=== PATIENT | female | born 1980 | race African-American/Black ===

== ENCOUNTER 2016-12-14 21:25 | Emergency (ER) | payer MEDICAID ==
[2016-12-14] MEDS ORDERED: Lidocaine 1% 20 ML MDV INJECT ONE (21:35)
--- NOTE | 2016-12-14 21:39 | EDM.PDOC ---
ED HPI GENERAL MEDICAL PROBLEM - General Stated Complaint: BOIL ON BUTT Time Seen by Provider: 12/14/16 21:33 Source of Information: Reports: Patient History Limitations: Reports: No Limitations - History of Present Illness INITIAL COMMENTS - FREE TEXT/NARRATIVE: HISTORY AND PHYSICAL: []36-year-old black female presenting with a boil on her "butt" History of Present Illness: []Patient had pain in this area for 3 days. Niacin any other complaints Review of Systems: As per history of present illness and below otherwise all systems reviewed and negative. Past medical history: As per history of present illness and as reviewed below otherwise noncontributory. Surgical history: As per history of present illness and as reviewed below otherwise noncontributory. Social history: No reported history of drug or alcohol abuse. Family history: As per history of present illness and as reviewed below otherwise noncontributory. Physical exam: Alert female answering questions appropriately HEENT: Atraumatic, normocehpalic, pupils reactive, negative for conjunctival pallor or scleral icterus, mucous membranes moist, throat clear, neck supple, nontender, trachea midline. Lungs: Clear to auscultation, breath sounds equal bilaterally, chest non tender. Heart: S1S2, regular, negative for clicks, rubs, or JVD. Abdomen: Soft, nondistended, nontender. Negative for masses or hepatossplenmegaly. Negative for costovertebral tenderness. Pelvis: Stable nontender. Genitourinary: Deferred. Rectal: Mid buttocks area of firmness mild erythema rectal area not involved. No fluctuation. Extremities: Atraumatic, negative for cords or calf pain. Neurovascular unremarkable. Neuro: Awake, alert, oriented. Cranial nerves II through XII unremarkable. Cerebellum unremarkable. Motor and sensory unremarkable throughout. Exam nonfocal. Diagnostics: [] Therapeutics: [] Impression: [A cellulitis versus early abscess] Plan: []Antibiotic therapy of cephalexin 500 mg 3 times a day Sitz baths or hot compresses to help define this area dry out the infection Ibuprofen for discomfort Definitive disposition and diagnosis as appropriate pending reevaluation and review of above. Onset: Sudden Duration: Day(s): (3) Location: Reports: Other (butocks) Quality: Reports: Stabbing, Throbbing Severity: Moderate - Related Data Allergies Allergy/AdvReac Type Severity Reaction Status Date / Time No Known Allergies Allergy Verified 12/14/16 21:38 Home Meds: Home Meds . [No Known Home Meds] 02/17/15 [History] Past Medical History - Past Health History Medical/Surgical History: Denies Medical/Surgical History Social & Family History - Tobacco Use Smoking Status *Q: Current Every Day Smoker Years of Tobacco use: 8 Packs/Tins Daily: 0.3 Second Hand Smoke Exposure: No - Recreational Drug Use Recreational Drug Use: No ED ROS GENERAL - Review of Systems Review Of Systems: ROS reveals no pertinent complaints other than HPI. ED EXAM, SKIN/RASH Exam: See Below (See dictation) Departure - Departure Time of Disposition: 21:42 Disposition: Home, Self-Care 01 Condition: Good Clinical Impression: Abscess - Discharge Information Additional Instructions: The following information is given to patients seen in the emergency department who are being discharged to home. This information is to outline your options for follow-up care. We provide all patients seen in our emergency department with a follow-up referral. The need for follow-up, as well as the timing and circumstances, are variable depending upon the specifics of your emergency department visit. If you don't have a primary care physician on staff, we will provide you with a referral. We always advise you to contact your personal physician following an emergency department visit to inform them of the circumstance of the visit and for follow-up with them and/or the need for any referrals to a consulting specialist. The emergency department will also refer you to a specialist when appropriate. This referral assures that you have the opportunity for followup care with a specialist. All of these measure are taken in an effort to provide you with optimal care, which includes your followup. Under all circumstances we always encourage you to contact your private physician who remains a resource for coordinating your care. When calling for followup care, please make the office aware that this follow-up is from your recent emergency room visit. If for any reason you are refused follow-up, please contact the [facility] emergency department at and asked to speak to the emergency department charge nurse. Prescription has been sent to [facility] Cephalexin 500mg 1 capsule tid for 10 days Follow-up in one week with your PCP
[2016-12-14 21:43] VITALS: BP 116/57
== END 2016-12-14 21:45 | disposition home or self-care (01) ==
LOC: MW.ED 21:25
DX: L02.31 Cutaneous abscess of buttock (principal); F17.210 Nicotine dependence, cigarettes, uncomplicated
CPT/HCPCS: 99282

== ENCOUNTER 2019-10-11 08:25 | Emergency (ER) | payer MEDICAID ==
--- NOTE | 2019-10-11 08:58 | EDM.PDOC ---
ED HPI GENERAL MEDICAL PROBLEM - General Chief Complaint: General Stated Complaint: KNOT GROWNING Time Seen by Provider: 10/11/19 08:39 Source of Information: Reports: Patient History Limitations: Reports: No Limitations - History of Present Illness INITIAL COMMENTS - FREE TEXT/NARRATIVE: This patient is a 39-year-old female with a remote history of treated syphilis and Chlamydia presenting with painful bumps to her right inguinal region and the perianal region. Patient states that both of these lesions appeared approximately 3 days ago, together. She is concerned that she may have abscesses. She denies any dysuria, urinary frequency, genital ulcers or lesions , or vaginal discharge. She states that she has been in a monogamous relationship with one partner for quite a long time and has no concerns about STI exposure. Denies fever, chills, nausea, vomiting, new lesions on the palms or soles. Right Groin Pain Score (Numeric/FACES): 8 - Related Data Allergies Allergy/AdvReac Type Severity Reaction Status Date / Time No Known Allergies Allergy Verified 10/11/19 08:32 Home Meds: Home Meds Doxycycline Hyclate 100 mg PO BID 10 Days #20 tablet. 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 Musculoskeletal History: Reports: None Neurological History: Reports: None Psychiatric History: Reports: None Endocrine/Metabolic History: Reports: None Hematologic History: Reports: None Immunologic History: Reports: None Oncologic (Cancer) History: Reports: None Dermatologic History: Reports: None - Infectious Disease History Infectious Disease History: Reports: None - Past Surgical History Head Surgeries/Procedures: Reports: None HEENT Surgical History: Reports: Tonsillectomy Social & Family History - Family History Family Medical History: Noncontributory - Tobacco Use Smoking Status *Q: Former Smoker Years of Tobacco use: 20 Packs/Tins Daily: 0.5 Used Tobacco, but Quit: Yes Month/Year Tobacco Last Used: 3\3030 Second Hand Smoke Exposure: Yes - Caffeine Use Caffeine Use: Reports: Coffee, Soda - Recreational Drug Use Recreational Drug Use: No ED ROS GENERAL - Review of Systems Review Of Systems: See Below Constitutional: Denies: Fever, Chills HEENT: Denies: Throat Pain Respiratory: Denies: Shortness of Breath Cardiovascular: Denies: Chest Pain GI/Abdominal: Denies: Abdominal Pain, Nausea, Vomiting : Reports: Other (Denies vaginal bleeding, vaginal discharge). Denies: Discharge, Dysuria, Flank Pain, Frequency, Urgency, Urinary Retention Musculoskeletal: Denies: Back Pain Skin: Reports: Lesions. Denies: Rash Neurological: Reports: No Symptoms Psychiatric: Reports: No Symptoms Hematologic/Lymphatic: Reports: No Symptoms Immunologic: Reports: No Symptoms ED EXAM, GENERAL - Physical Exam Exam: See Below Free Text/Narrative:: Vital signs reviewed. Nursing notes reviewed. Constitutional: Awake, alert, non-distressed. Head: Normocephalic, atraumatic. Eyes: EOMI, conjunctiva normal, no discharge, no scleral icterus. Ears, Nose, Throat: External ears and nose normal, moist oral mucosa. Oropharynx normal. Cardiovascular: 2+ radial pulse, capillary refill less than 2 seconds. Pulmonary: normal work of breathing, no accessory muscle use. Abdomen/GI: Soft, nontender, nondistended, no guarding or rigidity, no masses. : Painful right inguinal lymph node without associated erythema or drainable head or fluctuance. No evidence of genital lesions. In the right gluteal area , there is an area of erythema, tenderness, and fluctuance concerning for perianal abscess. Lone external hemorrhoid noted. Musculoskeletal: No deformities. Integumentary: Appropriate color for ethnicity, warm, dry, no pallor or jaundice , no rash. Neurologic: Alert, answering questions appropriately, normal speech, no facial droop, moving all extremities well. Psychiatric: Appropriate mood and affect, normal thought process. ED I&D PROCEDURES - I&D Site: Right gluteal cleft Skin prep: Isopropyl Alcohol (Alcohol) Local anesthesia - Lidocaine (Xylocaine): 0.5% Plain Local Anesthetic Volume: 4cc Area Incised With: 11 Blade Drainage: Purulent Probed to Break Up Loculations: Yes Packed With: 1/4 in. Iodoform Sterile Dressing: None (ABD) Complications: No Progress/Comments: Would culture sent ED ULTRASOUND - Evaluation of Abscess Location: Right gluteal cleft Abscess Identified: Yes Size of Abscess: 1x2 cm Loculations noted: No US Evaluation of Abscess Text: Complex fluid collection consistent with abscess , no evidence of cellulitis Course - Vital Signs Text/Narrative:: 39-year-old female presenting with a painful swollen groin lesion and a painful perianal lesion. Patient [hemodynamically stable, afebrile], well-appearing, looks nontoxic. Differential diagnosis includes but is not limited to: Syphilis, chlamydia, gonorrhea, inguinal abscess, lymphogranuloma venereum, abscess, perianal abscess , granuloma inguinale, and many others No painful ulceration to suggest chancroid or granuloma inguinale. No ulcers or blisters to suggest HSV. There is some concern for lymphogranuloma venereum/ syphilis given a unilateral isolated painful inguinal lymph node. Gonorrhea and chlamydia swabs were sent. Genital swabs are positive for Gardnerella the patient does not complain of any vaginal discharge or foul odor so clinical suspicion for BV is low. Rapid HIV testing is negative. Underwent bedside incision and drainage of the abscess as detailed in the procedure note. Packing was left in place, instructed patient to remove in 48 hours. Short course of doxycycline prescribed. Recommended [id number] acetaminophen and ibuprofen for pain. Wound culture sent. Plan: Patient is stable to discharge home with outpatient primary care follow- up. Strict emergency department return precautions were provided, patient indicated understanding. All questions were answered prior to departure. Discharged in good condition. Last Recorded V/S: Last Vital Signs Temp 35.8 C L 10/11/19 08:33 Pulse 72 10/11/19 10:29 Resp 16 10/11/19 10:29 BP 116/62 10/11/19 10:29 Pulse Ox 98 10/11/19 10:29 - Orders/Labs/Meds Orders: Active Orders 24 hr Category Date Time Status Communication Order [RC] STAT Care 10/11/19 09:35 Active Pelvic Exam, Set Up [RC] ASDIRECTED Care 10/11/19 09:06 Active CHLAMYDIA AND GONORRHEA BY TMA Stat Lab 10/11/19 09:20 Received CULTURE WOUND [RM] Stat Lab 10/11/19 10:20 Received RPR (SYPHILIS SERO) W/ RFLX [REF] Stat Lab 10/11/19 09:16 Received Labs: Laboratory Tests 10/11/19 10/11/19 Range/Units 08:42 09:16 Doretha species DNA NEGATIVE (NEGATIVE) Gardnerella DNA Probe POSITIVE H (NEGATIVE) HIV 1&2 Ag/Ab, 4th Gen < 0.1 (<1.0) INDEX Trichomonas DNA Probe NEGATIVE (NEGATIVE) Meds: Medications Discontinued Medications Generic Name Dose Route Start Last Admin Trade Name Mindi PRN Reason Stop Dose Admin Ibuprofen 400 mg 10/11/19 10:36 10/11/19 11:02 Motrin PO 10/11/19 10:37 Not Given ONETIME ONE Lidocaine HCl 10 ml 10/11/19 09:35 10/11/19 09:46 Xylocaine 1% INJECT 10/11/19 09:36 Not Given ONETIME ONE Lidocaine HCl 5 ml 10/11/19 09:38 10/11/19 09:46 Xylocaine-Mpf 1% INJECT 10/11/19 09:39 5 ml ONETIME ONE Administration Departure - Departure Time of Disposition: 10:59 Disposition: Home, Self-Care 01 Condition: Good Clinical Impression: Inguinal lymphadenopathy, Abscess of gluteal cleft - Discharge Information *PRESCRIPTION DRUG MONITORING PROGRAM REVIEWED*: Not Applicable *COPY OF PRESCRIPTION DRUG MONITORING REPORT IN PATIENT LACIE: Not Applicable Prescriptions: Doxycycline Hyclate 100 mg PO BID 10 Days #20 tablet.dr Instructions: Skin Abscess, [id number], Lymphadenopathy Referrals: [facility] [Provider Group] - 1 Week (For follow-up of symptoms) Forms: ED Department Discharge Additional Instructions: Thank you for choosing the [facility] emergency department in [place] for your medical needs today. It was a pleasure caring for you. You were seen in the emergency department for a swollen lymph node in your groin and for an abscess. You underwent incision and drainage of the gluteal abscess. I prescribed a one-week course of antibiotics to the pharmacy. I recommend [id number] Tylenol and Motrin for pain. You can remove the packing in 48 hours. Watch out for increasing redness, swelling, or fever. Return to the emergency department if you notice the symptoms. The swollen area in your groin is concerning for an enlarged lymph node. We sent testing offer, and sexually-transmitted infections. Your HIV test was negative. If any of the other tests turn positive, we will call you so you can start antibiotic or antiviral medications. Any sexual partner would need to be tested and treated as well. You were provided the information for our family medicine clinic for a follow- up appointment. I recommend you follow-up in their clinic in the next 1 to 2 weeks to ensure that your swollen lymph node resolves and that you have proper follow-up. Please return the emergency department immediately if your symptoms worsen or if you feel worse. The following information is given to patients seen in the emergency department who are being discharged. This information is to outline your options for follow -up care. We provide all patients seen in our emergency department with a follow -up referral. The need for follow-up, as well as the timing and circumstances, are variable depending upon the specifics of your emergency department visit. If you don't have a primary care physician on staff, we will provide you with a referral. We always advise you to contact your personal physician following an emergency department visit to inform them of the circumstance of the visit and for follow-up with them and/or the need for any referrals to a consulting specialist. The emergency department will also refer you to a specialist when appropriate. This referral assures that you have the opportunity for follow-up care with a specialist. All of these measure are taken in an effort to provide you with optimal care, which includes your follow-up. Under all circumstances we always encourage you to contact your private physician who remains a resource for coordinating your care. When calling for follow-up care, please make the office aware that this follow-up is from your recent emergency room visit. If for any reason you are refused follow-up, please contact the [facility] Emergency Department at and asked to speak to the emergency department charge nurse. If you do not have a primary care physician that is caring for you, you can contact these clinics below to set up an appointment to establish care: [facility] - [facility] [address] [place] [id number] [facility] [address] [place] [id number] Sepsis Event Note - Evaluation Sepsis Screening Result: No Definite Risk - Focused Exam Vital Signs: Vital Signs Temp Pulse Resp BP Pulse Ox 10/11/19 10:29 72 16 116/62 98 10/11/19 08:33 35.8 C L 74 14 106/42 L 100 Date Exam was Performed: 10/11/19 Time Exam was Performed: 11:15 - My Orders Last 24 Hours: My Active Orders 10/11/19 09:06 Pelvic Exam, Set Up [RC] ASDIRECTED 10/11/19 09:16 RPR (SYPHILIS SERO) W/ RFLX [REF] Stat 10/11/19 09:20 CHLAMYDIA AND GONORRHEA BY TMA Stat 10/11/19 09:35 Communication Order [RC] STAT 10/11/19 10:20 CULTURE WOUND [RM] Stat - Assessment/Plan Last 24 Hours: My Active Orders 10/11/19 09:06 Pelvic Exam, Set Up [RC] ASDIRECTED 10/11/19 09:16 RPR (SYPHILIS SERO) W/ RFLX [REF] Stat 10/11/19 09:20 CHLAMYDIA AND GONORRHEA BY TMA Stat 10/11/19 09:35 Communication Order [RC] STAT 10/11/19 10:20 CULTURE WOUND [RM] Stat
[2019-10-11] MEDS ORDERED: Lidocaine 1% 10 ML MDV INJECT ONE (09:35)
[2019-10-11 10:29] VITALS: BP 116/62; PULSE 72
[2019-10-11] MEDS ORDERED: Ibuprofen 400 MG Tab PO ONE (10:36)
== END 2019-10-11 11:12 | disposition home or self-care (01) ==
LOC: MW.ED 08:25
DX: L02.31 Cutaneous abscess of buttock (principal); R59.0 Localized enlarged lymph nodes; Z87.891 Personal history of nicotine dependence
CPT/HCPCS: 10060; 36415; 86592; 86593; 87070; 87077; 87186; 87389; 87480; 87491; 87510; 87591; 87660; 99283; J2001; 99282

== ENCOUNTER 2020-04-30 03:46 | Emergency (ER) | payer SELFPAY ==
--- NOTE | 2020-04-30 04:11 | EDM.PDOC ---
ED HPI GENERAL MEDICAL PROBLEM - General Chief Complaint: Neck Problem Stated Complaint: LUMP IN THROAT Time Seen by Provider: 04/30/20 04:04 Source of Information: Reports: Patient History Limitations: Reports: No Limitations - History of Present Illness INITIAL COMMENTS - FREE TEXT/NARRATIVE: 39-year-old female no past medical history presents for painful lump to left neck. Patient also notes sore throat, pain with swallowing. She denies fevers or cough. The symptoms have been going on for the past few days. 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 Musculoskeletal History: Reports: None Neurological History: Reports: None Psychiatric History: Reports: None Endocrine/Metabolic History: Reports: None Hematologic History: Reports: None Immunologic History: Reports: None Oncologic (Cancer) History: Reports: None Dermatologic History: Reports: None - Infectious Disease History Infectious Disease History: Reports: None - Past Surgical History Head Surgeries/Procedures: Reports: None HEENT Surgical History: Reports: Tonsillectomy Social & Family History - Family History Family Medical History: No Pertinent Family History - Caffeine Use Caffeine Use: Reports: Coffee, Soda ED ROS GENERAL - Review of Systems Review Of Systems: Comprehensive ROS is negative, except as noted in HPI. ED EXAM, GENERAL - Physical Exam Exam: See Below Exam Limited By: No Limitations General Appearance: Alert, WD/WN, No Apparent Distress Throat/Mouth: Normal Inspection, Normal Lips, Normal Gums, Normal Oropharynx, Normal Voice, No Airway Compromise Head: Atraumatic, Normocephalic Neck: Normal Inspection, Lymphadenopathy (L) Respiratory/Chest: No Respiratory Distress, Lungs Clear, Normal Breath Sounds, No Accessory Muscle Use Cardiovascular: Normal Peripheral Pulses, Regular Rate, Rhythm Extremities: Normal Inspection Neurological: Alert Psychiatric: Normal Affect, Normal Mood Skin Exam: Warm, Dry, Intact, Normal Color Course - Vital Signs Last Recorded V/S: Last Vital Signs Temp 97.4 F 04/30/20 03:59 Pulse 59 L 04/30/20 03:59 Resp 14 04/30/20 03:59 BP 127/72 04/30/20 03:59 Pulse Ox 100 04/30/20 03:59 - Re-Assessments/Exams Free Text/Narrative Re-Assessment/Exam: 04/30/20 04:10 Patient presents with left cervical lymphadenopathy. Will discharge with Augmentin. Return precautions discussed. Educational information provided. Departure - Departure Time of Disposition: 04:10 Disposition: Home, Self-Care 01 Condition: Good Clinical Impression: Cervical lymphadenitis - Discharge Information Prescriptions: Amoxicillin/Potassium Clav [Augmentin 875-125 Tablet] 1 each PO BID 10 Days #20 tablet Instructions: Lymphadenopathy Referrals: PCP,None [Primary Care Provider] - Forms: ED Department Discharge Additional Instructions: Your exam is remarkable for lymphadenopathy of your left neck This is most commonly caused by a viral or bacterial infection and called lymphadenitis. More rarely this can be caused by more dangerous conditions such as an abscess or even cancer. In the event that your symptoms do not improve after antibiotics or if you ever experience any difficulty breathing you should come back to the emergency department or follow-up with your primary care physician. The following information is given to patients seen in the emergency department who are being discharged to home. This information is to outline your options for follow-up care. We provide all patients seen in our emergency department with a follow-up referral. The need for follow-up, as well as the timing and circumstances, are variable depending upon the specifics of your emergency department visit. If you don't have a primary care physician on staff, we will provide you with a referral. We always advise you to contact your personal physician following an emergency department visit to inform them of the circumstance of the visit and for follow-up with them and/or the need for any referrals to a consulting specialist. The emergency department will also refer you to a specialist when appropriate. This referral assures that you have the opportunity for follow-up care with a specialist. All of these measure are taken in an effort to provide you with optimal care, which includes your follow-up. Under all circumstances we always encourage you to contact your private physician who remains a resource for coordinating your care. When calling for follow-up care, please make the office aware that this follow-up is from your recent emergency room visit. If for any reason you are refused follow-up, please contact the [facility] Emergency Department at and asked to speak to the emergency department charge nurse. Please follow up with your primary care physician. If you do not have a primary care physician, see below: [facility] [address] [place] [id number] [facility] [address] [place] [id number] Sepsis Event Note (ED) - Evaluation Sepsis Screening Result: No Definite Risk - Focused Exam Vital Signs: Vital Signs Temp Pulse Resp BP Pulse Ox 04/30/20 03:59 97.4 F 59 L 14 127/72 100
[2020-04-30] MEDS ORDERED: Amoxicillin/Clavulanate K 875-125 MG Tab PO ONE (04:15)
[2020-04-30 04:24] VITALS: BP 106/61; PULSE 57
== END 2020-04-30 04:18 | disposition home or self-care (01) ==
LOC: MW.ED 03:46
DX: I88.9 Nonspecific lymphadenitis, unspecified (principal)
CPT/HCPCS: 99282; 99283

== ENCOUNTER 2020-12-15 02:44 | Emergency (ER) | payer SELFPAY ==
[2020-12-15] MEDS ORDERED: Tetracaine HCl/PF 0.5% 4 ML Bottle EYEBOTH STA (02:54)
[2020-12-15 03:02] VITALS: BP 91/63; PULSE 55
[2020-12-15] MEDS ORDERED: HOMATROPINE EYEBOTH ONE (03:09)
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
[2020-12-15] MEDS ORDERED: Cyclopentolate 1% Opth Soln 2 ML Bottle EYERT ONE (03:29)
== END 2020-12-15 04:15 | disposition home or self-care (01) ==
LOC: MW.ED 02:44
DX: H20.9 Unspecified iridocyclitis (principal)
CPT/HCPCS: 99283